=== PATIENT | male | born 1990 | race African-American/Black ===

== ENCOUNTER 2017-05-15 16:48 | Emergency (ER) | payer MEDICAID, SELFPAY ==
[2017-05-15 16:49] VITALS: BP 133/51; PULSE 78; RESP 18; TEMP 36.7; O2SAT 97; BMI 22.6
--- NOTE | 2017-05-15 17:20 | ED.DCSUM_ITS ---
- ER Visit Summary Date of Service: 05/15/17 Chief Complaint: Dysuria History of Present Illness: The patient is a 27 M has been having 4-5 days of dysuria, burning at the urethral meatus. No discharge in between urination. Some mild lower abdominal discomfort, no nausea, vomiting, back pain, fevers. No scrotal testicular pain. Patient is suspicious of an STD, he received oral sex from a girl recently but did not engage in vaginal intercourse. He has had gonorrhea and chlamydia in the past and was treated for them, states he thinks this feels similar. Physical Examination: Afebrile normal vital signs well-appearing in no distress. Abdomen benign. No objective discharge expressible from the urethral meatus which is not erythematous. No lesions. No inguinal lymphadenopathy. Testicles and epididymi nontender. Test Results: GC and chlamydia PCR sent via urine, pending. Urinalysis shows 25 leukocyte esterase, 5-10 white blood cells. Sent for culture. Emergency Department Course and Treatment: Suspect urethritis caused by gonorrhea or chlamydia, and treated empirically for both, Rocephin 250 mg IM, and azithromycin 1 g orally. Based on urine results, I do not think he needs a prescription for any more antibiotics. Treatment Plan: Supportive Disposition: Discharge home Impression: Urethritis This note was generated with [employer] dictation software. It may contain incorrect words, spelling, and punctuation that were not noted in review of the chart prior to signing ED Disposition - Plan for ED Patient: Disposition: Home or Assisted Living Chief Complaint: Male Pain/Injury Instructions: ED STD Male Treated Referrals: Tiarra Cuello [NON-STAFF] - As Needed
[2017-05-15 17:26] LABS: Red Blood Cells-Urine 0 SEEN /hpf (0-5)
[2017-05-15 17:31] LABS: Color, Urine Yellow (Yellow); Glucose, Dipstick Normal (Normal); Ketone-Dipstick Negative (Negative); Leukocyte Esterase-Dipstick 25 /ul (Negative); Nitrite-Dipstick Negative (Negative); Occult Blood-Urine Negative /ul (Negative); Protein-Dipstick 30 mg/dl (Negative); Urine Bilirubin Dipstick Negative (Negative); Urine Clarity Clear (Clear); Urine Urobilinogen 1 mg/dl (Normal)
[2017-05-15 17:41] LABS: Bacteria RARE /hpf (None Seen); Calcium Oxalate Crystals Ur 2+ /hpf (<or=2+); Mucous, Urine 2+ /hpf (<or=2+); Squamous Epithelial Cells - UA 0-5 SEEN /hpf (0-5); White Blood Cells 5-10 SEEN /hpf (0-5)
[2017-05-15] MEDS: Ceftriaxone 500 MG Vial 250 MG IM (17:45)
[2017-05-15] MEDS: Azithromycin 250 MG Tablet 1000 MG PO (17:45)
[2017-05-15 19:21] LABS: Chlamydia Trachomatis by PCR Negative (Negative); Neisserai gonorrhoeae by PCR Negative (Negative); Probe Check PASS; Sample Adequacy Control PASS; Specimen Processing Control PASS
== END 2017-05-15 18:28 | disposition home or self-care (01) ==
PROVIDERS: Emergency Provider Emergency Medicine
DX: N34.2 Other urethritis (principal); Z72.0 Tobacco use
CPT/HCPCS: 81001; 87086; 87491; 87591; 96372; 99282

== ENCOUNTER 2022-09-02 08:19 | Emergency (ER) | payer MEDICAID, SELFPAY ==
[2022-09-02 08:20] VITALS: BP 120/91; PULSE 93; RESP 16; TEMP 36.6; O2SAT 98; BMI 23.1
--- NOTE | 2022-09-02 08:36 | RAD_ITS ---
EXAM: XR RIGHT KNEE COMPLETE, 4 OR MORE VIEWS CLINICAL INDICATION: Trauma injury. TECHNIQUE: Four or more views of the right knee. COMPARISON: No relevant prior studies available. FINDINGS: BONES/JOINTS: Unremarkable. No acute fracture. No subluxation. Normal alignment. Preservation of the joint space. No sclerotic or destructive changes observed. SOFT TISSUES: Unremarkable. No soft tissue swelling or gas. No radiopaque foreign body. RAD/Knee 4 or More Views IMPRESSION: Negative right knee x-rays. Electronically Signed: Dick Lu MD at 9:18 EDT ,
--- NOTE | 2022-09-02 08:38 | ED.VIS.LOWEX ---
HPI History of Present Illness Chief Complaint: Lower Extremity Injury Informant: patient Narrative Narrative: Patient presents with right sided knee pain for about 2 days. Patient is overall healthy. He states he jumped off a diving board 2 days ago. He did not land firmly. But he did jump very firmly. Later in the day started to get pain in the front of his right knee. It seems to have worsened a bit. He does not have a fever. He feels as though it is bruised in the front of the knee but does not remember actually impacting the knee on any surface. It is painful to extend the leg. Straight weightbearing is not as bad. No other areas of joint pain. No other complaints. He overall feels well. He has been trying Motrin for this but it just does not relieve it much. PFSH PFSH Home Medications ondansetron 4 mg disintegrating tablet 4 mg PO Q8H PRN PRN Nausea #10 tabs 07/04/17 [Rx Last Taken Unknown] cephalexin 500 mg capsule 500 mg PO Q6 #40 CAPSULES 09/02/22 [Rx Last Taken Unknown] naproxen 500 mg tablet 500 mg PO BID #14 tabs 09/02/22 [Rx Last Taken Unknown] Allergy/AdvReac Type Severity Reaction Status Date / Time No Known Allergies Allergy Verified 09/02/22 08:21 Social History Smoking Status: Current every day smoker tobacco type: cigarettes ROS ROS ED Constitutional Constitutional ED: Denies chills or fever(s) ENT ENT ED: Denies sore throat Cardiovascular Cardiovascular: Denies chest pain Respiratory/Chest Respiratory/Chest: Denies cough Gastrointestinal Gastrointestinal: Denies diarrhea, nausea or vomiting Musculoskeletal Musculoskeletal: Reports arthralgias and other Details: Soreness of the right knee but no diffuse or other areas of pain. ; Denies back pain Integumentary Reports other Details: Reports some bruising over the anterior portion of the knee but no other areas of bruising ; Denies abscess or Abrasions Neurologic Neurologic: Denies paresthesias or weakness Hematologic/Lymphatic Hematologic/Lymphatic: Denies easy bleeding or easy bruising EXAM Physical Exam Narrative Exam Narrative: Patient is awake and alert sitting comfortably in bed no acute distress. HEENT shows no sign of trauma. Chest is clear breathing is easy unlabored. Saturations are normal at 98% on room air showing no hypoxia. Heart is regular. Abdomen is thin soft nondistended nontender Extremities show no swelling. The only abnormality I see is in his right knee. At the inferior lateral portion of the patella there is a area of color change about 3 x 3-1/2 cm. It is tender right there. No pain with actual motion of the knee itself. There is no effusion. This does not appear to be the knee is much as it is the patella. When I press on the patellar tendon it is also tender but it is fully intact. His extensor mechanism is intact. I used a magnifying glass and looked at the skin and there are no foreign objects, stingers or infected hair shafts. Patient feels it looks bruise but to me it looks a little bit more red than bruised. Const Vital Signs: 09/02/22 08:20 09/02/22 08:47 Temperature 97.9 F Temperature Source Temporal Temporal Pulse Rate 93 Respiratory Rate 16 Blood Pressure 120/91 H Blood Pressure Mean 100 Pulse Ox 98 Oxygen Delivery Method Room Air MDM MDM MDM Narrative Medical decision making narrative: My independent interpretation of the patient's 4 view x-ray of his right knee shows no sign of fracture or dislocation or effusion. Patient has soreness with extension of his knee and palpation. There is no effusion but he does appear to have more erythema to me than bruising. He has no fever. But then he stated he did feel like he had a fever last night but did not check his temperature. He does have a strain incident that could cause pain but I be surprised if it caused the skin changes. There is no effusion or passive pain in the knee with motion. But I am concerned that this could be a superficial cellulitis. I see no infected hair shaft or bug bite. There is no indication of abscess. No history of MRSA. I will treat him with Naprosyn as he may have a discomfort or strain. But I will add antibiotics because this is so close to the knee joint I think we need to be cautious. We discussed risks of infection and extension and reasons to return. Radiography Diagnostic Testing: Clinical Impression(s) from Imaging Studies Knee X-Ray 09/02/22 08:36 IMPRESSION: Negative right knee x-rays. Electronically Signed: Dick Lu MD at 9:18 EDT , Discharge Plan Triage Chief Complaint: Lower Extremity Injury ED Provider: Ish Ocampo Dx/Rx/DC Orders Clinical Impression: Contusion of right knee, Cellulitis of right lower extremity Instructions: ED Cellulitis, ED Knee Sprain Prescriptions: New naproxen 500 mg tablet 500 mg PO BID Qty: 14 0RF cephalexin [cephalexin] 500 mg capsule 500 mg PO Q6 Qty: 40 0RF No Action ondansetron 4 MG tablet 4 mg PO Q8H PRN PRN (Reason: Nausea) Qty: 10 0RF Primary Care Provider: Care Physician,No Primary Referrals: Nidia Pedersen MD [Med Staff - Manufacturing Advisor] - 3-5 Days if not improving Care Physician,No Primary [Primary Care Provider] - Disposition Disposition: Home, Self Care
[2022-09-02] MEDS: Cephalexin 250 MG Capsule 500 MG PO (10:09)
[2022-09-02] MEDS: Naproxen 500 MG Tablet PO (10:09)
--- NOTE | 2022-09-02 10:18 | CM.ED ---
Social Work Note Referral Source: case find Referral Reason: no PCP SW met with patient and introduced herself and role as [facility] Sustainability Manager. Patient lying on hospital bed and agreeable to speak with SW. SW inquired about patient's insurance and current PCP. Patient verified insurance and reports no current PCP. SW provided patient with a list of local PCPs in network with patient's insurance and accepting new patients. Patient was receptive towards list and voiced no other needs. SW remains available if needs arise. Tammie Tong MSW, [place]
== END 2022-09-02 10:22 | disposition home or self-care (01) ==
PROVIDERS: Emergency Provider Emergency Medicine; Visit Provider Emergency Medicine
DX: S80.01XA Contusion of right knee, initial encounter (principal); L03.115 Cellulitis of right lower limb; F17.210 Nicotine dependence, cigarettes, uncomplicated; W16.512A Jumping or diving into swimming pool striking water surface causing other injury, initial encounter; Y92.34 Swimming pool (public) as the place of occurrence of the external cause
CPT/HCPCS: 73564; 99283

== ENCOUNTER 2022-09-03 22:46 | Observation (INO) | payer MEDICAID, SELFPAY ==
[2022-09-03 22:47] VITALS: BP 113/96; PULSE 98; RESP 16; TEMP 37.2; O2SAT 100
[2022-09-03 22:49] VITALS: BMI 22.7
--- NOTE | 2022-09-03 23:39 | EDS_ITS ---
HPI History of Present Illness Chief Complaint: Cellulitis Detail of Chief Complaint: Pain and redness to right knee Informant: patient Narrative Narrative: Patient presents with pain to his right knee x4 days. He was seen in the emergency department 2 days ago and had x-rays that were unremarkable. He states he had been swimming but no injury or trauma to the knee. Patient ultimately diagnosed with cellulitis and sent home with cephalexin. Patient continues to complain of pain and increased redness. He has had subjective fever and chills at home. Patient also states he recently quit drinking alcohol. Prior similar symptoms: No PFSH PFSH Home Medications ondansetron 4 mg disintegrating tablet 4 mg PO Q8H PRN PRN Nausea #10 tabs 07/04/17 [Rx Last Taken Unknown] cephalexin 500 mg capsule 500 mg PO Q6 #40 CAPSULES 09/02/22 [Rx Last Taken Unknown] naproxen 500 mg tablet 500 mg PO BID #14 tabs 09/02/22 [Rx Last Taken Unknown] Allergy/AdvReac Type Severity Reaction Status Date / Time No Known Allergies Allergy Verified 09/03/22 22:49 Social History Smoking Status: Current every day smoker tobacco type: cigarettes ROS ROS ED Review of Systems ROS Unobtainable: other Constitutional Constitutional ED: Reports fever(s) and lethargy; Denies chills, sweats or weight loss Eyes Eyes: Denies blurry vision, change in vision or diplopia ENT ENT ED: Denies rhinorrhea or sore throat Cardiovascular Cardiovascular: Denies chest pain, palpitations or racing heartbeat Respiratory/Chest Respiratory/Chest: Denies cough, dyspnea, dyspnea on exertion or sputum Gastrointestinal Gastrointestinal: Denies abdominal pain, diarrhea, nausea or vomiting Genitourinary Genitourinary ED: Denies dysuria, hematuria or urinary frequency Musculoskeletal Musculoskeletal: Denies arthralgias, back pain, myalgias or neck pain Integumentary Reports rash and other Details: Redness and swelling to right knee ; Denies abscess or Abrasions Neurologic Neurologic: Denies headache(s) or weakness Psychiatric Psychiatric: Denies anxiety, depression or suicidal thoughts Endocrine Endocrinology: Denies polydipsia, polyphagia or polyuria Hematologic/Lymphatic Hematologic/Lymphatic: Denies easy bleeding, easy bruising or lymphadenopathy Allergic/Immunologic Allergic/Immunologic ED: Denies mouth swelling, tongue swelling or urticaria EXAM Physical Exam Const Vital Signs: 09/03/22 22:47 09/04/22 00:54 Temperature 99 F Temperature Source Temporal Pulse Rate 98 75 Respiratory Rate 16 15 Blood Pressure 113/96 H 134/78 H Blood Pressure Mean 101 96 Pulse Ox 100 99 Oxygen Delivery Method Room Air Room Air Positive well nourished and well developed General Appearance ED: well developed and NAD HEENT Reports TM's clear and moist mucous membranes normocephalic and atraumatic; Negative for trauma or tenderness Tympanic Membrane ED: Yes TM's clear Eyes PERRL and EOMs intact bilaterally General Eye ED: Negative for pale conjunctiva or scleral icterus Neck no lymphadenopathy, supple and no JVD General: Negative for tenderness Chest Wall inspection of chest normal and palpation of chest normal Chest: Negative for tenderness Resp normal respiratory effort and clear to auscultation bilaterally Effort and Inspection: Negative for respiratory distress or pain with movement Auscultation: Negative for rhonchi, wheezes or diminished lung sounds Cardio regular rate, regular rhythm, S1 normal heart sound, S2 normal heart sound and no murmurs Peripheral Pulses: pulses 2+ throughout GI normal to inspection, nondistended, normoactive bowel sounds, soft to palpation, non-tender, non-distended and no masses Back/Spine no CVA tenderness and no thoracic nor lumbar tenderness Extremity Extremity Narrative: Patient with erythema to the anterior aspect of the right knee. He has tenderness palpation over the insertion of the patellar tendon. No significant joint effusion noted. Patient has pain with range of motion. He is neurovascular intact distally. General Extremety ED: Negative for edema General Extremity: Negative for edema Neuro oriented x3, CN's II-XII intact bilaterally, no sensory deficits noted and gait normal Sensorium / Orientation: awake, alert, oriented to person, oriented to place and oriented to time Motor Exam: strength 5/5 throughout and strength abnormal Psych mental status grossly normal Skin no rashes or lesions noted and no wounds MDM MDM MDM Narrative Medical decision making narrative: Patient presents with pain of his right knee with subjective fever and redness despite being on antibiotics. No trauma recalled. IV line established. Patient was started on Unasyn and vancomycin IV. He has cellulitic changes to the anterior aspect of the right knee. Patient does have pain with range of motion but no obvious effusion. Suspicion for septic joint low. He had lab work-up that included WBC count of 12.4 with a hemoglobin of 14.8 and platelet count of 280. Chemistries unremarkable. Sed rate was normal. C-reactive protein elevated 23. Lactate was normal 1.4. Case discussed with hospitalist will evaluate patient for admission for right knee cellulitis failed outpatient therapy. Lab Data Attestation: I reviewed the patient's lab results. Labs: Laboratory Results - last 24 hr 09/03/22 09/03/22 09/03/22 23:50 23:50 23:50 WBC 12.4 H RBC 4.42 L Hgb 14.8 Hct 44.3 MCV 100.2 H MCH 33.5 H MCHC 33.4 RDW Std Deviation 44.6 H RDW Coeff of Toyin 12.0 Plt Count 280 MPV 9.8 Immature Gran % (Auto) 0.300 Neut % (Auto) 51.9 Lymph % (Auto) 32.2 [place] % (Auto) 13.8 H Eos % (Auto) 1.3 Baso % (Auto) 0.5 Absolute Neuts (auto) 6.5 Absolute Lymphs (auto) 4.00 Nucleated RBC % 0 Diff Path Review May foll Atypical Lymphocytes 1+ Macrocytosis 1+ ESR 18 Sodium 142 Potassium 4.1 Chloride 107 Carbon Dioxide 29.0 Anion Gap 6 BUN 20 H Creatinine 0.86 Estim Creat Clear Calc 145.00 Est GFR (MDRD) Af Amer 131 Est GFR (MDRD) Non-Af 108 BUN/Creatinine Ratio 23.3 H Glucose 100 Lactic Acid 1.4 Uric Acid 5.2 Calcium 8.6 C-React Prot Ext Range 23.00 H Discharge Plan Triage Chief Complaint: Cellulitis ED Provider: Hanna Chowdhury Dx/Rx/DC Orders Clinical Impression: Cellulitis of right lower extremity, Leukocytosis, Fever Prescriptions: No Action ondansetron 4 MG tablet 4 mg PO Q8H PRN PRN (Reason: Nausea) Qty: 10 0RF naproxen 500 mg tablet 500 mg PO BID Qty: 14 0RF cephalexin [cephalexin] 500 mg capsule 500 mg PO Q6 Qty: 40 0RF Primary Care Provider: Care Physician,No Primary Referrals: Care Physician,No Primary [Primary Care Provider] - Disposition Disposition: [facility]
[2022-09-04 00:13] LABS: Anion Gap 6 (5-15); BUN 20 mg/dL (7-18); BUN/Creat Ratio 23.3 RATIO (10-20); Calcium,Total 8.6 mg/dL (8.5-10.1); Chloride 107 mmol/L (98-107); Creatinine, Serum 0.86 mg/dL (0.70-1.30); EST Glomerular Filtration Rate 108 mL/min (>60); Est Glom Filt Rate - Afr Amer 131 mL/min (>60); Glucose 100 mg/dL (74-106); Potassium 4.1 mmol/L (3.5-5.1); Sodium Level 142 mmol/L (136-145); Uric Acid 5.2 mg/dL (3.5-7.2)
[2022-09-04 00:22] LABS: Absolute Neutrophil Count 6.5 X10^3/uL (2.0-7.7); Basophil# 0.06 X10^3/uL; Basophil% 0.5 % (0-1); Eosinophil# 0.16 X10^3/uL; Eosinophils% 1.3 % (0-5); Hematocrit 44.3 % (40-54); Hemoglobin 14.8 g/dL (13.0-16.5); Lymphocyte % 32.2 % (19-41); Mean Corp Hgb Conc 33.4 g/dL (32-36); Mean Corpuscular Hgb 33.5 pg (27.0-32.0); Mean Corpuscular Volume 100.2 fL (80-94); Mean Platelet Vol. 9.8 fl (6.2-12.0); Monocyte# 1.72 X10^3/uL; Monocyte% 13.8 % (0-10); NRBC Flagged by Analyzer 0 % (0-5); Neutrophil # 6.46 X10^3/uL (2.7-7.7); Neutrophil % 51.9 % (47-70); POSITIVE DIFFERENTIAL YES; POSITIVE MORPHOLOGY YES; Platelet Count 280 K/mm3 (150-450); RBC Distribution Width SD 44.6 fl (35.1-43.9); Red Blood Count 4.42 M/mm3 (4.6-6.2); White Blood Count 12.4 K/mm3 (4.4-11.0)
[2022-09-04 00:31] LABS: Differential Indicated SCAN CRITERIA MET
[2022-09-04 00:36] LABS: Lactic Acid 1.4 mmol/L (0.4-1.9)
[2022-09-04 00:39] LABS: Erythrocyte Sedimentation Rate 18 mm/hr (0-20); Macrocytosis 1+
[2022-09-04 00:40] LABS: Atypical Lymphocyte 1+ %
[2022-09-04 00:54] VITALS: BP 134/78; PULSE 75; RESP 15; O2SAT 99
--- NOTE | 2022-09-04 01:06 | HP.PCM.HOS_ITS ---
HPI - General General Date of Admission: 09/04/22 Date of Service: 09/04/22 Chief Complaint: right knee cellulitis HPI Narrative NIKOLAS MARTINEZ, is a 32 M who presents presents with worsening right knee cellulitis. Patient was seen on the and diagnosed with right knee cellulitis and received cephalexin. Patient was taken the antibiotics but despite that, his knee pain and swelling got worse. He presented back to the emergency room and was diagnosed with cellulitis again. Patient has been having chills at home particular when his pain flares up. He denies any antecedent trauma with this. He has never had cellulitis before. In the emergency room, patient received Unasyn and vancomycin. PFSH no medical history Home Medications ondansetron 4 mg disintegrating tablet 4 mg PO Q8H PRN PRN Nausea #10 tabs 07/04/17 [Rx Last Taken Unknown] cephalexin 500 mg capsule 500 mg PO Q6 #40 CAPSULES 09/02/22 [Rx Last Taken Unknown] naproxen 500 mg tablet 500 mg PO BID #14 tabs 09/02/22 [Rx Last Taken Unknown] Allergy/AdvReac Type Severity Reaction Status Date / Time No Known Allergies Allergy Verified 09/03/22 22:49 no significant family history Social History Smoking Status: Current every day smoker tobacco type: cigarettes ROS ROS Narrative All review of systems were negative except as mentioned above in the history of present illness and the other review of systems. Vital Signs Vital Signs Vital Signs: 09/03/22 22:47 09/04/22 00:54 Temperature 37.2 C Temperature Source Temporal Pulse Rate 98 75 Respiratory Rate 16 15 Blood Pressure 113/96 H 134/78 H Blood Pressure Mean 101 96 Pulse Ox 100 99 Oxygen Delivery Method Room Air Room Air Weight Weight: 84.7 kg Body Mass Index (BMI) 22.7 Physical Exam Const alert and no apparent distress Constitutional Narrative: Tearful when I walked in. HEENT normocephalic and head/scalp atraumatic Eyes Eyes Narrative: No icterus Extremity Extremity Narrative: Swelling on the anterior right knee with some bogginess. Exquisitely tender to palpation. Neuro oriented x3 Sensorium / Orientation: awake and alert Psych Mood & Affect: anxious Results Lab / Micro Data Attestation: I reviewed the patient's lab results. Result Diagrams: 09/03/22 23:50 09/03/22 23:50 Labs: Laboratory Results - last 24 hr 09/03/22 23:50: WBC 12.4 H, RBC 4.42 L, Hgb 14.8, Hct 44.3, MCV 100.2 H, MCH 33.5 H, MCHC 33.4, RDW Std Deviation 44.6 H, RDW Coeff of Toyin 12.0, Plt Count 280, MPV 9.8, Immature Gran % (Auto) 0.300, Neut % (Auto) 51.9, Lymph % (Auto) 32.2, [place] % (Auto) 13.8 H, Eos % (Auto) 1.3, Baso % (Auto) 0.5, Absolute Neuts (auto) 6.5, Absolute Lymphs (auto) 4.00, Nucleated RBC % 0, Diff Path Review May foll, Atypical Lymphocytes 1+, Macrocytosis 1+, ESR 18 09/03/22 23:50: Sodium 142, Potassium 4.1, Chloride 107, Carbon Dioxide 29.0, Anion Gap 6, BUN 20 H, Creatinine 0.86, Estim Creat Clear Calc 145.00, Est GFR (MDRD) Af Amer 131, Est GFR (MDRD) Non-Af 108, BUN/Creatinine Ratio 23.3 H, Glucose 100, Uric Acid 5.2, Calcium 8.6, C-React Prot Ext Range 23.00 H 09/03/22 23:50: Lactic Acid 1.4 Assessment & Plan Assessment/Plan (1) Cellulitis of right lower extremity: PLAN: Onset was about 4 days ago. Patient was seen in the emergency room on the and received cephalexin. I am concerned about this being an MRSA infection and the cephalexin that he had received would likely be insufficient for such an infection. I am also concerned the patient may have an underlying abscess. For the MRSA, will continue with vancomycin. For the possible abscess, will order a CAT scan to better visualize. I am not ordering an ultrasound of his knee because given his exquisite pain, he would unlikely tolerate an ultrasound probe on his knee. Ice as needed Elevate right upper extremity. For pain control: Scheduled acetaminophen, ketorolac, oxycodone. PLAN: Plan VTE prophylaxis: Low risk at this point in time as he is currently observation status. Disposition: At this point in time patient will be made observation status as is anticipate the patient will be in the hospital less than 2 midnights. However if surgery is required that may change in the status may need to be changed at that point. Charges/Coding Visit Charges Inpatient E&M: 16176 Init Hosp L2
[2022-09-04 01:18] VITALS: BP 134/78; PULSE 75; RESP 15; TEMP 37.2; O2SAT 99
[2022-09-04 02:50] VITALS: BMI 22.3
[2022-09-04 03:09] VITALS: BP 112/67; PULSE 78; RESP 16; TEMP 36.7; O2SAT 99
--- NOTE | 2022-09-04 03:13 | CT_ITS ---
STUDY: CT RIGHT KNEE WITH CONTRAST REASON FOR EXAM: Male, 32 years old. Right knee cellulitis. Evaluate for abscess. RADIATION DOSAGE (If Supplied By Facility): CTDIvol = ( 15.35 ) mGy, DLP = ( 764.40 ) mGycm TECHNIQUE: Transaxial CT imaging of the knee was performed post contrast administration. The examination was performed with intravenous administration of IV 100mL Isovue-370. Individualized dose optimization techniques were used for this CT. COMPARISON: X-rays dated September 02, 2022. FINDINGS: Normal medial femoral condyle and medial tibial plateau. There is preservation of the articular joint space of the medial knee compartment. Normal lateral femoral condyle and lateral tibial plateau. There is preservation of the articular joint space of the lateral knee compartment. Normal proximal tibiofibular articulation. There is no joint effusion. There is no demonstrated abnormal enhancement. The quadriceps tendon is grossly normal. The patellar tendon is grossly normal. Normal Hoffa''s fat pad. No abnormality of the soft tissues. CT/Extremity Lower WITH Contrast IMPRESSION: Normal enhanced CT of the knee. No abscess identified. Focal ultrasound is another imaging alternative to evaluate for fluid collections in the soft tissues. Electronically Signed: Derek Jay MD at 9:32 EDT ,
--- NOTE | 2022-09-04 03:24 | PCM.RX.CS ---
Consult Pharmacy has been consulted to manage selected antiobiotic: Vancomycin Type of Consult: New start Suspected Infection: Skin/Soft tissue Labs: Sodium 142 mmol/L (136-145) 09/03/22 23:50 Potassium 4.1 mmol/L (3.5-5.1) 09/03/22 23:50 Chloride 107 mmol/L (98-107) 09/03/22 23:50 Carbon Dioxide 29.0 mmol/L (21.0-32.0) 09/03/22 23:50 Anion Gap 6 (5-15) 09/03/22 23:50 BUN 20 mg/dL (7-18) H 09/03/22 23:50 Creatinine 0.86 mg/dL (0.70-1.30) 09/03/22 23:50 Est GFR (MDRD) Af Amer 131 mL/min (>60) 09/03/22 23:50 Est GFR (MDRD) Non-Af 108 mL/min (>60) 09/03/22 23:50 BUN/Creatinine Ratio 23.3 RATIO (10-20) H 09/03/22 23:50 Glucose 100 mg/dL (74-106) 09/03/22 23:50 Goal Trough: 15-20 mcg/mL Pharmacy Plan for Drug Dosing: Pharmacy Service will continue to monitor and adjust dosing as required. Medications Vancomycin HCl (Vancomycin) 1,000 mg in 200 mls @ 200 mls/hr IV Q8H DON Discontinued Medications Vancomycin HCl 1,250 mg/ (Sodium Chloride) 275 mls @ 167 mls/hr IV X1 ONE Stop: 09/04/22 02:16 Last Admin: 09/04/22 01:07 Dose: 167 mls/hr Follow-Up Labs: Trough Vancomycin Labs to be done on [date and time ordered]: 09/05 @ 0030
[2022-09-04] MEDS: Acetaminophen 500 MG Tablet 1000 MG PO ×3 (04:44→21:15)
[2022-09-04] MEDS: 0.9% Saline Lock 10 ML Syringe IV ×4 (04:45→20:21)
[2022-09-04 06:13] LABS: Absolute Lymphocyte Count 3.19 X10^3/uL (0.83-4.51); Absolute Neutrophil Count 5.3 X10^3/uL (2.0-7.7); Basophil# 0.06 X10^3/uL; Basophil% 0.6 % (0-1); Eosinophil# 0.15 X10^3/uL; Eosinophils% 1.5 % (0-5); Hematocrit 42.2 % (40-54); Hemoglobin 13.9 g/dL (13.0-16.5); Lymphocyte # 3.19 X10^3/ul (0.83-4.51); Lymphocyte % 31.6 % (19-41); Mean Corp Hgb Conc 32.9 g/dL (32-36); Mean Corpuscular Hgb 33.4 pg (27.0-32.0); Mean Corpuscular Volume 101.4 fL (80-94); Mean Platelet Vol. 9.7 fl (6.2-12.0); Monocyte# 1.37 X10^3/uL; Monocyte% 13.6 % (0-10); NRBC Flagged by Analyzer 0 % (0-5); Neutrophil # 5.26 X10^3/uL (2.7-7.7); Neutrophil % 52.1 % (47-70); Platelet Count 275 K/mm3 (150-450); RBC Distribution Width CV 12.1 % (11.6-14.6); Red Blood Count 4.16 M/mm3 (4.6-6.2); White Blood Count 10.1 K/mm3 (4.4-11.0)
[2022-09-04 06:36] LABS: Anion Gap 3 (5-15); BUN 17 mg/dL (7-18); BUN/Creat Ratio 19.7 RATIO (10-20); Calcium,Total 8.8 mg/dL (8.5-10.1); Chloride 108 mmol/L (98-107); Creatinine, Serum 0.86 mg/dL (0.70-1.30); EST Glomerular Filtration Rate 108 mL/min (>60); Est Glom Filt Rate - Afr Amer 130 mL/min (>60); Estimated Creatinine Clearance 142.26 ml/min; Glucose 100 mg/dL (74-106); Potassium 4.1 mmol/L (3.5-5.1); Sodium Level 140 mmol/L (136-145)
[2022-09-04 09:09] VITALS: BP 109/92; PULSE 79; RESP 17; TEMP 36.5; O2SAT 96
[2022-09-04] MEDS: Vancomycin IV 1,000 MG/200 ML BAG 200 MG IV ×2 (09:23→17:27)
[2022-09-04 14:06] LABS: Pathologist Review Reviewed
--- NOTE | 2022-09-04 14:51 | CASEMGMT ---
Noted pt did not have PCP, MAKAYLA CM into pt room, pt states he was given a local healthcare directory from the ER but has not had time to go through his papers. Pt states he is ambulating with a cane his friend let him borrow. Pt denies any homegoing needs.
[2022-09-04 15:00] VITALS: BP 125/69; PULSE 77; RESP 16; TEMP 37.1; O2SAT 100
[2022-09-04 20:28] VITALS: BP 127/72; PULSE 66; RESP 16; TEMP 36.8; O2SAT 97
[2022-09-05 00:54] LABS: Vancomycin, Trough Level 11.2 ug/mL (5.0-15.0)
[2022-09-05 01:31] VITALS: BP 132/80; PULSE 65; RESP 16; TEMP 36.5; O2SAT 100
--- NOTE | 2022-09-05 01:34 | PCM.RX.CS ---
Consult Pharmacy has been consulted to manage selected antiobiotic: Vancomycin Type of Consult: Follow-up Labs: Sodium 140 mmol/L (136-145) 09/04/22 06:06 Potassium 4.1 mmol/L (3.5-5.1) 09/04/22 06:06 Chloride 108 mmol/L (98-107) H 09/04/22 06:06 Carbon Dioxide 29.0 mmol/L (21.0-32.0) 09/04/22 06:06 Anion Gap 3 (5-15) L 09/04/22 06:06 BUN 17 mg/dL (7-18) 09/04/22 06:06 Creatinine 0.86 mg/dL (0.70-1.30) 09/04/22 06:06 Est GFR (MDRD) Af Amer 130 mL/min (>60) 09/04/22 06:06 Est GFR (MDRD) Non-Af 108 mL/min (>60) 09/04/22 06:06 BUN/Creatinine Ratio 19.7 RATIO (10-20) 09/04/22 06:06 Glucose 100 mg/dL (74-106) 09/04/22 06:06 Vancomycin Trough 11.2 ug/mL (5.0-15.0) 09/05/22 00:10 Goal Trough: 15-20 mcg/mL Pharmacy Plan for Drug Dosing: Pharmacy Service will continue to monitor and adjust dosing as required. TROUGH 11.2 @ 7.5 HRS. INCREASE TO 1250MG Q8H AND FOLLOW UP TROUGH PRIOR TO 4TH DOSE Follow-Up Labs: Trough Vancomycin Labs to be done on [date and time ordered]: 09/06 @ 0100
[2022-09-05] MEDS: 0.9% Saline Lock 10 ML Syringe IV ×2 (02:21→08:16)
[2022-09-05 05:12] VITALS: BP 125/86; PULSE 77; RESP 16; TEMP 36.7; O2SAT 100
[2022-09-05] MEDS: Acetaminophen 500 MG Tablet 1000 MG PO (05:15)
[2022-09-05 07:47] VITALS: BP 137/68; PULSE 52; RESP 16; TEMP 36.6; O2SAT 100
--- NOTE | 2022-09-05 07:55 | DCINST_ITS ---
Discharge Instructions Diet Discharge Diet: No restrictions Activity Discharge Activity: Return to Normal Activity Weight Bearing Status: Weight bearing as tolerated Dressing / Incision Call your doctor if you observe: Fever of 101 or Higher, Coldness, Increased Pain, Numbness or Tingling, Change in Color, Inability to urinate, Inability to have a bowel movement, Shortness of breath, Dizziness, Fainting spells, Swelling in the ankles, Chest pain, Prolonged hiccupping, Increased palpitations (irregular heartbeat) and Calf discomfort Follow Up Care When: IN 2 WEEKS Test Results: Test results from this visit will be discussed in further detail at your follow- up appointment, if applicable. Discharge Plan Admission Admit Date/Time: 09/04/22 01:02 Primary Reason for Your Visit: Right knee cellulitis Attending Provider: Selvin Murrell Primary Care Provider: Care Physician,No Primary Consulting Providers: Zach Hines Discharge Orders/Prescriptions Prescriptions: New sulfamethoxazole-trimethoprim [Bactrim DS] 800-160 mg tablet 1 tab PO BID 7 Days Qty: 14 0RF pantoprazole [Protonix] 40 mg tablet,delayed release (DR/EC) 40 mg PO DAILY Qty: 30 0RF Continued ondansetron 4 MG tablet 4 mg PO Q8H PRN PRN (Reason: Nausea) Qty: 10 0RF cephalexin 500 mg capsule 500 mg PO Q6 Qty: 40 0RF naproxen 500 mg tablet 500 mg PO BID Qty: 14 0RF Rx Instructions: for 5 more days then prn Referrals / Follow Up: Ronal Dobson MD [Med Staff - Active Staff] - Within 2 Weeks Care Physician,No Primary [Primary Care Provider] - Disposition Disposition (needs filled in before D/C Order can be placed): Home, Self Care
[2022-09-05 08:01] LABS: Absolute Lymphocyte Count 3.51 X10^3/uL (0.83-4.51); Absolute Neutrophil Count 5.4 X10^3/uL (2.0-7.7); Basophil# 0.06 X10^3/uL; Basophil% 0.6 % (0-1); Eosinophil# 0.11 X10^3/uL; Eosinophils% 1.1 % (0-5); Hemoglobin 13.6 g/dL (13.0-16.5); Lymphocyte # 3.51 X10^3/ul (0.83-4.51); Lymphocyte % 34.5 % (19-41); Mean Corp Hgb Conc 32.4 g/dL (32-36); Mean Corpuscular Hgb 33.2 pg (27.0-32.0); Mean Corpuscular Volume 102.4 fL (80-94); Monocyte# 1.04 X10^3/uL; Monocyte% 10.2 % (0-10); NRBC Flagged by Analyzer 0 % (0-5); Neutrophil # 5.39 X10^3/uL (2.7-7.7); Neutrophil % 53.1 % (47-70); Platelet Count 279 K/mm3 (150-450); RBC Distribution Width CV 11.9 % (11.6-14.6); White Blood Count 10.2 K/mm3 (4.4-11.0)
[2022-09-05 08:19] LABS: Anion Gap 1 (5-15); BUN 11 mg/dL (7-18); Calcium,Total 8.8 mg/dL (8.5-10.1); Chloride 107 mmol/L (98-107); Creatinine, Serum 0.84 mg/dL (0.70-1.30); EST Glomerular Filtration Rate 110 mL/min (>60); Est Glom Filt Rate - Afr Amer 133 mL/min (>60); Estimated Creatinine Clearance 145.64 ml/min; Glucose 97 mg/dL (74-106); Potassium 4.5 mmol/L (3.5-5.1); Sodium Level 139 mmol/L (136-145)
--- NOTE | 2022-09-05 10:30 | DS.PCM_ITS ---
Providers Date of Admission: 09/04/22 Date of Discharge: 09/05/22 Primary Care Physician: No Primary Care Phys Reason For Visit: CELLULITS RIGHT KNEE Diagnosis Discharge Diagnosis (1) Cellulitis of right lower extremity: Status: Acute Code(s): L03.115 - Cellulitis of right lower limb Plan 32-year-old gentleman admitted with worsening right knee pain, redness and swelling for 4 days. Patient was seen in ED on 02 September and was diagnosed with right knee cellulitis and was discharged on cephalexin. Despite taking antibiotic his swelling and pain getting worse and he felt like chills [facility] In ED patient had Unasyn and vancomycin. 1. Right knee cellulitis: Patient was started on IV vancomycin and Unasyn for suspected MRSA infection. Patient had x-ray done which did not show effusion furthermore CT of right knee with contrast was done which did not show joint effusion. Preservation of articulation of medial and lateral joints condyles. No abnormal enhancement. No abnormal quadriceps tendon swelling or soft tissue swelling. Therefore with the x-ray and CT reporting no joint effusion it was decided not to do arthrocentesis. Patient pain and swelling got better with the antibiotic. He can flex knee 60 to 70 degrees. Advised follow-up with orthop edic surgeon Dr. Dobson in 2 weeks. Patient denies any history of rheumatological disease. He said he started after he did diving and swimming. Continue RICE. Continue rest, ice, compression and elevation for 2 to 3 days but patient can walk on flat ground. Patient has Keflex given in ED for 10 days. Prescription for Bactrim DS for 10 more days given. Discharge medication reconciliation done. Discharge follow-up instructions completed. Discharge process discussed with the patient and all questions were answered to patient's satisfaction. Total time spent, exact 35 minutes on discharge meds reconciliation, examination, coordination of care with nurses and ancillary staff, review of imaging and blood test and discussion with the patient on follow-up instructions. Medications at Discharge Home Medications ondansetron 4 mg disintegrating tablet 4 mg PO Q8H PRN PRN Nausea #10 tabs 07/04/17 cephalexin 500 mg capsule 500 mg PO Q6 #40 CAPSULES 09/02/22 naproxen 500 mg tablet 500 mg PO BID #14 tabs 09/05/22 pantoprazole 40 mg tablet,delayed release (Protonix) 40 mg PO DAILY #30 tabs 09/05/22 sulfamethoxazole 800 mg-trimethoprim 160 mg tablet (Bactrim DS) 1 tab PO BID 7 days #14 tabs 09/05/22 Physical Exam Narrative Seen and examined. No fever or chills. Leukocytosis resolved. Physical exam General: Alert, Oriented x3, Cooperative HEENT: Atraumatic, PERRLA, EOMI, Normocephalic Oral: Oral mucosa moist. No Gingival or Mucosal Lesions/ Ulcerations Neck: Supple, No JVD, Negative Carotid Bruits Lungs: Air entry diminished in bilateral lung bases. No crepitation/rhonchi Cardiovascular: Regular rate, Regular Rhythm, Normal S1, Normal S2, No murmurs Abdomen: Bowel Sounds Present, Soft, Non Tender, Non-Distended : No renal angle tenderness. No suprapubic tenderness. Extremities: No edema, Capillary Refill Less than 3 Seconds Skin: No rashes, No breakdown Musculoskeletal: Flexes about 60 to 70 degree. Right skin mild warmth. No palpable effusion. No patellar tenderness. ROM restricted on right knee due to pain. Neurological: Cranial nerves II-XII grossly intact, DTR 2+/4 and Symmetrical, Neuro grossly intact Psych/Mental Status: Normal Affect, Appropriate. Weight / BMI Weight Weight: 183 lb 3.266 oz Body Mass Index (BMI) 22.3 ABG / Lab / Microbiology Data Result Diagrams: 09/05/22 07:31 09/05/22 07:31 Laboratory: Laboratory Results - last 24 hr 09/03/22 23:50: Diff Path Review Reviewed 09/05/22 00:10: Vancomycin Trough 11.2 09/05/22 07:31: WBC 10.2, RBC 4.10 L, Hgb 13.6, Hct 42.0, MCV 102.4 H, MCH 33.2 H, MCHC 32.4, RDW Std Deviation 45.0 H, RDW Coeff of Toyin 11.9, Plt Count 279, MPV 10.0, Immature Gran % (Auto) 0.500, Neut % (Auto) 53.1, Lymph % (Auto) 34.5, [place] % (Auto) 10.2 H, Eos % (Auto) 1.1, Baso % (Auto) 0.6, Absolute Neuts (auto) 5.4, Absolute Lymphs (auto) 3.51, Nucleated RBC % 0 09/05/22 07:31: Sodium 139, Potassium 4.5, Chloride 107, Carbon Dioxide 31.0, Anion Gap 1 L, BUN 11, Creatinine 0.84, Estim Creat Clear Calc 145.64, Est GFR (MDRD) Af Amer 133, Est GFR (MDRD) Non-Af 110, BUN/Creatinine Ratio 13.0, Glucose 97, Calcium 8.8 D/C Instructions Discharge Diet: No restrictions Weight Bearing Status: Weight bearing as tolerated Call your doctor if you observe: Fever of 101 or Higher, Coldness, Increased Pain, Numbness or Tingling, Change in Color, Inability to urinate, Inability to have a bowel movement, Shortness of breath, Dizziness, Fainting spells, Swelling in the ankles, Chest pain, Prolonged hiccupping, Increased palpitations (irregular heartbeat) and Calf discomfort When: IN 2 WEEKS Meaningful Use Info Meaningful Use Diagnoses (Choose all that apply): None applicable Discharge Plan Admission Admit Date/Time: 09/04/22 01:02 Primary Reason for Your Visit: Right knee cellulitis Attending Provider: Selvin Murrell Primary Care Provider: Care Physician,No Primary Consulting Providers: Zach Hiens Discharge Orders/Prescriptions Prescriptions: New sulfamethoxazole-trimethoprim [Bactrim DS] 800-160 mg tablet 1 tab PO BID 7 Days Qty: 14 0RF pantoprazole [Protonix] 40 mg tablet,delayed release (DR/EC) 40 mg PO DAILY Qty: 30 0RF Continued ondansetron 4 MG tablet 4 mg PO Q8H PRN PRN (Reason: Nausea) Qty: 10 0RF cephalexin 500 mg capsule 500 mg PO Q6 Qty: 40 0RF naproxen 500 mg tablet 500 mg PO BID Qty: 14 0RF Rx Instructions: for 5 more days then prn Referrals / Follow Up: Ronal Dobson MD [Med Staff - Active Staff] - Within 2 Weeks Care Physician,No Primary [Primary Care Provider] - Disposition Disposition (needs filled in before D/C Order can be placed): Home, Self Care Charges/Coding Visit Charges Inpatient E&M: 70529 Disch Hosp >30min
== END 2022-09-05 12:04 | disposition home or self-care (01) ==
LOC: ED 09-04 00:56 → MS3 09-04 06:49
PROVIDERS: Family Medicine; Emergency Provider Emergency Medicine; Visit Provider Internal Medicine
DX: L03.115 Cellulitis of right lower limb (principal); F17.210 Nicotine dependence, cigarettes, uncomplicated
CPT/HCPCS: 36415; 73701; 80048; 80202; 83605; 84550; 85025; 85652; 86140; 96365; 96366; 96367; 99221; 99284; J7050; Q9967; A4216; G0378; J0295; J0696